=== PATIENT | female | born 1950 | race Caucasian/White ===

== ENCOUNTER → 2018-03-17 | Outpatient (CLI) | payer OTHER, MEDICARE | LOC: FIMAGING 09:24 | PROVIDERS: ATTEND Orthopaedic Surgery | DX: Z01.818 Encounter for other preprocedural examination (principal); M16.12 Unilateral primary osteoarthritis, left hip ==

== ENCOUNTER 2018-04-10 08:10 | Inpatient (IN) | payer OTHER, MEDICARE ==
--- NOTE | 2018-04-10 06:31 | PDHPUP ---
History & Physical Update H&P update statement: This history and physical update is based on an assessment of the patient which was completed after admission or registration (within 24 hours), but prior to the surgery/procedure. H&P update: no change in patient's condition since H&P completed
--- NOTE | 2018-04-10 06:31 | PDIAF ---
- Diagnosis Diagnosis: left hip djd Code Status: Full Code - Medication Management Discharge Medications: Medications to Continue on Transfer Calcium Carbonate [Oyster Shell Calcium 500 mg (*)] 500 mg PO DAILY 03/23/18 [ Last Taken Unknown] Carboxymethylcellulose 1% [Refresh Celluvisc (*)] 1 drop EACHEYE DAILY PRN 03/23 [Last Taken Unknown] Cholecalciferol Vit D3 [Vitamin D3 (*)] 1,000 units PO DAILY 03/23/18 [Last Taken Unknown] Fluticasone Nasal [Flonase Nasal [place] (RX)] 1 sprays NASAL DAILY 03/23/18 [ Last Taken Unknown] Ibuprofen [Motrin (*)] 400 - 800 mg PO DAILY 03/23/18 [Last Taken Unknown] Multivitamins [Multivitamin (*)] 1 each PO DAILY 03/23/18 [Last Taken Unknown] Discharge Medications: Refer to the Discharge Home Medication list for PRN reason. - Orders Services needed: Physical Therapy Isolation Type: None Diet Recommendation: no restrictions on diet Diet Texture: Regular Texture Diet Additional Instructions: TOTAL JOINT ARTHROPLASTY DISCHARGE INSTRUCTIONS 1. Your surgeon follows the [facility] protocol for reducing your risk of DVT (blood clots) following surgery. Medication will be ordered to prevent blood clots. A sudden increase in calf pain and/or swelling could indicate a blood clot in your leg. If this occurs, please call your surgeon or his/her financial planning assistant. An ultrasound of the leg may be necessary to diagnose a blood clot. If you have conditions that make you a higher risk for blood clots, your surgeon may use more aggressive ways to prevent them. Notify your surgeon if you think you are a high risk for blood clots. 2. Wear your white surgical stockings (KHLOE hose) for 2 weeks. This decreases your swelling and may help prevent blood clots. It is ok to remove KHLOE hose at night time to give your legs a break. 3. Swelling and bruising in the surgical leg is common. If you feel that it is excessive, please notify your surgeon. 4. Elevate your surgical leg with the ankle above the hip several times every day. Please keep the leg straight when you elevate by putting pillows under your foot. Do not put pillows under your knee. This will make being able to fully straighten more difficult. This is uncomfortable, but try to do it as much as possible. 5. For total knee replacements use compressive wrap on your knee for 3-5 days after surgery, then you can discontinue it. 6. Use a walker or crutches for 1-2 weeks. Progress your weight-bearing as tolerated. You may start to use a cane when you feel stable and safe. 7. You will receive physical therapy instructions in the hospital. Continue those exercises at home. There are additional exercises in the total joint booklet you were given before surgery. Outpatient physical therapy will begin 7- 10 days after surgery. Please schedule this in advance. 8. Use ice on your knee at least 3-5 times every day for 30 minutes. This helps reduce pain and swelling. Also use it at night before falling asleep. 9. Leave your surgical dressing in place for 2 weeks. Your dressing is water resistant, but not waterproof. Cover it with Saran Wrap or Pvgfk-t-Cnvb before showering. You may shower as soon as you feel safe entering a shower. If you notice bleeding from your incision 2 or 3 days after surgery, please notify your surgeon. 10. Due to narcotics, decreased activity and altered diet, most patients experience constipation after surgery. Use glid-byo-byzlvhv stool softeners while you are on narcotics. 11. You may drive a car when you are comfortable bearing weight, have good muscular control of your leg and are off narcotics. This usually occurs 2-4 weeks after surgery, depending on which leg was operated on. 12. If there are questions not addressed here, please refer the [facility] book given for more information. If you still have questions, please contact your surgeon s office. 13. If you have a life-threatening emergency, please call 911 and go to the emergency room immediately. For non-life threatening emergencies, please call your physicians office for advice before going to the emergency room. - Follow Up Care Current Providers and Referrals: Ana Lilia Bond [Primary Care Provider] - Felton Byrd MD [Medical Doctor] -
[2018-04-10] MEDS ORDERED: ACETAMINOPHEN 325 MG TAB PO ONE (08:32)
[2018-04-10] MEDS ORDERED: ceFAZolin 2 GM/DEXTROSE 100 ML IV ONE (08:32)
[2018-04-10] MEDS ORDERED: FAMOTIDINE 20 MG TAB PO ONE (08:32)
[2018-04-10] MEDS ORDERED: LIDOCAINE 1% 2 ML INJ ID PRN (08:32)
[2018-04-10] MEDS ORDERED: LR 1,000 ML IV ONE (08:32)
[2018-04-10] MEDS ORDERED: TRANEXAMIC ACID 1,000 MG in NS 100 ML IV ONE (09:00)
[2018-04-10] MEDS ORDERED: ROPIVACAINE 0.2% 80 MG, EPINEPHrine 0.2 MG, KETOROLAC TROMETHAMINE 30 MG, morphINE 10 M... IU ONE (09:00)
[2018-04-10] MEDS ORDERED: ceFAZolin 1 GM/5 ML SYR ONE (10:01)
--- NOTE | 2018-04-10 10:04 | PDANEPAE ---
ANE Past Medical History - Cardiovascular History Hx Hypertension: No Hx Arrhythmias: No Hx Chest Pain: No Hx Coronary Artery / Peripheral Vascular Disease: No Hx CHF / Valvular Disease: No Hx Palpitations: No - Pulmonary History Hx COPD: No Hx Asthma/Reactive Airway Disease: No Hx Recent Upper Respiratory Infection: No Hx Oxygen in Use at Home: No Hx Sleep Apnea: No Sleep Apnea Screening Result - Last Documented: Negative - Neurologic History Hx Cerebrovascular Accident: No Hx Seizures: No Hx Dementia: No - Endocrine History Hx Diabetes: No Endocrine History Comment: anneliese's- asymptomatic - Renal History Hx Renal Disorders: Yes Renal History Comment: hx of uti. bladder lift surgery 07/2016 - Liver History Hx Hepatic Disorders: No - Neurological & Psychiatric Hx Hx Neurological and Psychiatric Disorders: No - Cancer History Hx Cancer: Yes Cancer History Comment: recurrance of breast ca 11/2016 completed chemo and radiation. breast cancer with left mastectomy 1996 surgery only - Congenital Disorder History Hx Congenital Disorders: No - GI History Hx Gastrointestinal Disorders: Yes Gastrointestinal History Comment: constipation. hx of reflux - Other Health History Other Health History: wears glasses. - Chronic Pain History Chronic Pain: Yes (left hip/knee) - Surgical History Prior Surgeries: 11/2016 left lumpectomy. 07/2016 bladder lift surgery. right ORIF clavicle fx. left knee surgery broken tibial fx. hardware removed 06/2014. left mastectomy. 1988 ANE Review of Systems Review of Systems: - Exercise capacity METS (RN): 3 METS ANE Patient History - Allergies Allergies/Adverse Reactions: paclitaxel [From Taxol] Allergy (Verified 03/28/18 10:49) Hives - Home Medications Home Medications: Calcium Carbonate [Oyster Shell Calcium 500 mg (*)] 500 mg PO DAILY 03/23/18 [ Last Taken 04/06/18] Carboxymethylcellulose 1% [Refresh Celluvisc (*)] 1 drop EACHEYE DAILY PRN 03/23 [Last Taken 04/06/18] Cholecalciferol Vit D3 [Vitamin D3 (*)] 1,000 units PO DAILY 03/23/18 [Last Taken 04/06/18] Fluticasone Nasal [Flonase Nasal [place] (RX)] 1 sprays NASAL DAILY 03/23/18 [ Last Taken 04/09/18] Ibuprofen [Motrin (*)] 400 - 800 mg PO DAILY 03/23/18 [Last Taken 04/06/18] Multivitamins [Multivitamin (*)] 1 each PO DAILY 03/23/18 [Last Taken 04/06/18] Colace 04/10/18 [Last Taken 04/08/18] Senna Lax 04/10/18 [Last Taken 04/08/18] - NPO status NPO Since - Liquids (Date): 04/09/18 NPO Since - Liquids (Time): 20:00 NPO Since - Solids (Date): 04/09/18 NPO Since - Solids (Time): 19:00 - Smoking Hx Smoking Status: Never smoked - Family Anes Hx Family Hx Anesthesia Complications: none ANE Labs/Vital Signs - Vital Signs Blood Pressure: 99/68 Heart Rate: 66 Respiratory Rate: 15 O2 Sat (%): 98 Height: 155.8 cm Weight: 51 kg ANE Physical Exam - Airway Neck exam: decreased ROM Mallampati Score: Class 1 Mouth exam: normal dental/mouth exam - Pulmonary Pulmonary: no respiratory distress - Cardiovascular Cardiovascular: regular rate and rhythym - ASA Status ASA Status: II ANE Anesthesia Plan Anesthesia Plan: spinal
[2018-04-10] MEDS ORDERED: PROPOFOL 200 MG/20 ML VIAL ONE ×3 (11:06→11:51)
[2018-04-10] MEDS ORDERED: TEMAZEPAM 15 MG CAP PO PRN (12:31)
[2018-04-10] MEDS ORDERED: LACTULOSE 20 GM/30 ML UDCUP PO PRN (12:31)
[2018-04-10] MEDS ORDERED: CYCLOBENZAPRINE 10 MG TAB PO PRN (12:31)
[2018-04-10] MEDS ORDERED: PROMETHAZINE HCL 25 MG SUPPR PR PRN (12:31)
[2018-04-10] MEDS ORDERED: MAGNESIUM HYDROXIDE 30 ML UDCUP PO PRN (12:31)
[2018-04-10] MEDS ORDERED: METOCLOPRAMIDE 10 MG/2 ML VIAL IVP PRN (12:31)
[2018-04-10] MEDS ORDERED: oxyCODONE IR 5 MG TAB PO PRN (12:31)
[2018-04-10] MEDS ORDERED: ONDANSETRON 4 MG/2 ML VIAL IVP PRN ×2 (12:31→12:44)
[2018-04-10] MEDS ORDERED: BISACODYL 10 MG SUPP PR PRN (12:31)
[2018-04-10] MEDS ORDERED: POLYETHYLENE GLYCOL 3350 17 GM PKT PO PRN (12:31)
[2018-04-10] MEDS ORDERED: diphenhydrAMINE 25 MG CAP PO PRN (12:31)
[2018-04-10] MEDS ORDERED: DIPHENOXYLATE/ATROPINE LOMOTIL 1 TAB PO PRN (12:31)
[2018-04-10] MEDS ORDERED: CARBOXYMETHYLCELLULOSE 1% 0.4 ML DROPERETTE EACHEYE PRN (12:32)
--- NOTE | 2018-04-10 12:34 | POSTOPPROG ---
Post Op Note Date of Operation: 04/10/18 Surgeon: Felton Byrd Allergist/Immunologist: aren Anesthesiologist: boo Anesthesia: Spinal Pre-op Diagnosis: left hip djd Post-op Diagnosis: same Indication: same Procedure: left iliana Inf/Abcess present in the surg proc area at time of surgery?: No Depth: Deep Incisional (Fascial) EBL: 100-500 Drains: Hemovac
[2018-04-10] MEDS ORDERED: LR 500 ML IV PRN (12:44)
[2018-04-10] MEDS ORDERED: HYDROCODONE/APAP 5/325 TAB PO PRN (12:44)
[2018-04-10] MEDS ORDERED: NALOXONE HCL 0.4 MG/ML INJ IVP PRN (12:44)
--- NOTE | 2018-04-10 12:45 | POSTANESTH ---
Post Anesthetic Evaluation Cardiovascular Status: Normal, Stable Respiratory Status: Normal, Stable Level of Consciousness/Mental Status: Can Participate in Eval Pain Control: Adequate, Prn Tx Ordered Nausea/Vomiting Control: Adequate, Prn Tx Ordered Complications Possibly Related to Anesthesia: None Noted
[2018-04-10] MEDS ORDERED: fentaNYL 100 MCG/2 ML INJ ONE (12:46)
[2018-04-10] MEDS: fentaNYL 100 MCG/2 ML INJ IVP PRN ×2 (12:49→12:56)
[2018-04-10] MEDS: LR 1,000 ML IV SCH ×2 (14:49→22:51)
[2018-04-10] MEDS: ONDANSETRON DISINTEGRATING 4 MG TAB PO PRN (14:49)
--- NOTE | 2018-04-10 17:00 | PDMN ---
Medical Necessity Medical necessity: [facility] IP only surgery; cpt 77727 L FOREST
[2018-04-10] MEDS: ACETAMINOPHEN 325 MG TAB PO SCH (18:25)
[2018-04-10] MEDS: TRANEXAMIC ACID 650 MG TAB PO SCH (18:26)
[2018-04-10] MEDS: ceFAZolin 2 GM/DEXTROSE 100 ML IV SCH (18:26)
[2018-04-10] MEDS: PROMETHAZINE HCL 25 MG/ML INJ IVP PRN (20:24)
[2018-04-10] MEDS: FAMOTIDINE 20 MG TAB PO SCH (22:55)
[2018-04-10] MEDS: ASPIRIN 325 MG TAB PO SCH (22:55)
[2018-04-10] MEDS: SENNOSIDES/DOCUSATE SODIUM TAB PO SCH (22:56)
[2018-04-11] MEDS: TRANEXAMIC ACID 650 MG TAB PO SCH ×2 (01:31→10:02)
[2018-04-11] MEDS: ceFAZolin 2 GM/DEXTROSE 100 ML IV SCH (01:31)
[2018-04-11] MEDS: ACETAMINOPHEN 325 MG TAB PO SCH ×4 (01:32→18:11)
[2018-04-11] MEDS: ONDANSETRON DISINTEGRATING 4 MG TAB PO PRN (01:36)
[2018-04-11] MEDS: PROMETHAZINE HCL 25 MG/ML INJ IVP PRN (02:43)
--- NOTE | 2018-04-11 07:08 | PDIAF ---
- Diagnosis Diagnosis: left hip djd Code Status: Full Code - Medication Management Discharge Medications: Medications to Continue on Transfer Calcium Carbonate [Oyster Shell Calcium 500 mg (*)] 500 mg PO DAILY 03/23/18 [ Last Taken 04/06/18] Carboxymethylcellulose 1% [Refresh Celluvisc (*)] 1 drop EACHEYE DAILY PRN 03/23 [Last Taken 04/06/18] Cholecalciferol Vit D3 [Vitamin D3 (*)] 1,000 units PO DAILY 03/23/18 [Last Taken 04/06/18] Fluticasone Nasal [Flonase Nasal [place]] 1 sprays NASAL DAILY 03/23/18 [Last Taken 04/09/18] Multivitamins [Multivitamin (*)] 1 each PO DAILY 03/23/18 [Last Taken 04/06/18] Colace 04/10/18 [Last Taken 04/08/18] Senna Lax 04/10/18 [Last Taken 04/08/18] Aspirin [Aspirin 325 mg (*)] 325 mg PO DAILY tab 04/11/18 [Last Taken Unknown] oxyCODONE IR [Oxycodone Ir (*)] 5 - 10 mg PO Q3HRS PRN #50 tab 04/11/18 [Last Taken Unknown] Discharge Medications: Refer to the Discharge Home Medication list for PRN reason. - Orders Services needed: Physical Therapy, Occupational Therapy Isolation Type: None Diet Recommendation: no restrictions on diet Diet Texture: Regular Texture Diet Additional Instructions: TOTAL JOINT ARTHROPLASTY DISCHARGE INSTRUCTIONS 1. Your surgeon follows the [facility] protocol for reducing your risk of DVT (blood clots) following surgery. Medication will be ordered to prevent blood clots. A sudden increase in calf pain and/or swelling could indicate a blood clot in your leg. If this occurs, please call your surgeon or his/her assistant at surgery. An ultrasound of the leg may be necessary to diagnose a blood clot. If you have conditions that make you a higher risk for blood clots, your surgeon may use more aggressive ways to prevent them. Notify your surgeon if you think you are a high risk for blood clots. 2. Wear your white surgical stockings (KHLOE hose) for 2 weeks. This decreases your swelling and may help prevent blood clots. It is ok to remove KHLOE hose at night time to give your legs a break. 3. Swelling and bruising in the surgical leg is common. If you feel that it is excessive, please notify your surgeon. 4. Elevate your surgical leg with the ankle above the hip several times every day. Please keep the leg straight when you elevate by putting pillows under your foot. Do not put pillows under your knee. This will make being able to fully straighten more difficult. This is uncomfortable, but try to do it as much as possible. 5. For total knee replacements use compressive wrap on your knee for 3-5 days after surgery, then you can discontinue it. 6. Use a walker or crutches for 1-2 weeks. Progress your weight-bearing as tolerated. You may start to use a cane when you feel stable and safe. 7. You will receive physical therapy instructions in the hospital. Continue those exercises at home. There are additional exercises in the total joint booklet you were given before surgery. Outpatient physical therapy will begin 7- 10 days after surgery. Please schedule this in advance. 8. Use ice on your knee at least 3-5 times every day for 30 minutes. This helps reduce pain and swelling. Also use it at night before falling asleep. 9. Leave your surgical dressing in place for 2 weeks. Your dressing is water resistant, but not waterproof. Cover it with Saran Wrap or Pxttg-a-Oqxv before showering. You may shower as soon as you feel safe entering a shower. If you notice bleeding from your incision 2 or 3 days after surgery, please notify your surgeon. 10. Due to narcotics, decreased activity and altered diet, most patients experience constipation after surgery. Use aygy-ocd-spjfpll stool softeners while you are on narcotics. 11. You may drive a car when you are comfortable bearing weight, have good muscular control of your leg and are off narcotics. This usually occurs 2-4 weeks after surgery, depending on which leg was operated on. 12. If there are questions not addressed here, please refer the [facility] book given for more information. If you still have questions, please contact your surgeon s office. 13. If you have a life-threatening emergency, please call 911 and go to the emergency room immediately. For non-life threatening emergencies, please call your physicians office for advice before going to the emergency room. - Follow Up Care Current Providers and Referrals: Ana Lilia Bond [Primary Care Provider] - Felton Byrd MD [Medical Doctor] -
--- NOTE | 2018-04-11 07:10 | SOAPPROG ---
SOAP Progress Note Assessment/Plan: Assessment: s/p iliana Plan:limited mobility yesterday secondary to low bp and lightheadedness dvt precautions d/c home with home pt/ot 04/11/18 07:08 Subjective: lightheaded yesterday no current nausea, no cp or sob Objective: Vital Signs Temp Pulse Resp BP Pulse Ox 36.7 C 58 L 18 82/46 L 97 04/11/18 04:00 04/11/18 04:00 04/11/18 04:00 04/11/18 04:00 04/11/18 04:00 Laboratory Results 04/11/18 04:40 04/10/18 04/11/18 04/12/18 05:59 05:59 05:59 Intake Total 4331 Output Total 1035 400 Balance 3296 -400 dressing intact intact pf,df,ehl lyndon neg homans lyndon xrays stable anatomic alignment,, no fx or lucency ICD10 Worksheet Patient Problems: Problems Problem Status Onset Hip arthritis Acute - ICD10 Problem Qualifiers (1) Hip arthritis
[2018-04-11] MEDS: SENNOSIDES/DOCUSATE SODIUM TAB PO SCH ×2 (07:57→20:41)
[2018-04-11] MEDS: ASPIRIN 325 MG TAB PO SCH (07:57)
[2018-04-11] MEDS: FAMOTIDINE 20 MG TAB PO SCH ×2 (07:58→20:41)
[2018-04-11] MEDS: LR 1,000 ML IV SCH (09:59)
--- NOTE | 2018-04-11 11:07 | ASMTCMCOM ---
CM Note CM Note Notes: Pt medically stable for d/c with [facility] PT. Address/phone verified. Orders to be obtained via [employer]. Date Signed: 04/11/2018 11:06 AM Electronically Signed By:JASPAL Partida
--- NOTE | 2018-04-11 11:07 | ASMTLACE ---
LACE Length of stay for Answers: 2 days current admission Acuity / Level of Answers: Yes Care: Did the patient have an inpatient admission? Comorbidities - select Answers: Any tumor (including all that apply lymphoma or leukemia) Opioid dependence / Chronic pain # of Emergency department Answers: 0 visits in the last 6 months Score: 11 Date Signed: 04/11/2018 11:04 AM Electronically Signed By:JASPAL Partida
--- NOTE | 2018-04-11 13:56 | ASMTCMCOM ---
CM Note CM Note Notes: Pt will stay another night per PT Summer LANETTE claros. Date Signed: 04/11/2018 12:15 PM Electronically Signed By:JASPAL Partida
[2018-04-11] MEDS ORDERED: LR 1,000 ML IV SCH (17:00)
[2018-04-11] MEDS ORDERED: NS 500 ML IV ONE (20:23)
--- NOTE | 2018-04-11 20:44 | GCON ---
[f rep st] CONSULTATION HOSPITALIST CONSULTATION DATE OF CONSULTATION: 04/11/2018 REFERRING PHYSICIAN: Felton Byrd MD REASON FOR CONSULTATION: Postoperative hypotension. HISTORY OF PRESENT ILLNESS: This is a 67-year-old female, postoperative day one, left total hip arth roplasty due to degenerative joint disease. Postoperatively the patient's blood pressure has ranged from 116 systolic to 72 systolic with a diastolic of 37 to 68. The patient tells me that her blood p ressure typically runs low. Currently she denies any chest pain or shortness of breath. She does no t feel lightheaded. She denies any fevers or chills. PAST MEDICAL HISTORY: Breast cancer, finished treatment in December of this year. PAST SURGICAL HISTORY: 1. Lumpectomy. 2. section. 3. Clavicle ORIF. 4. Tibial plateau fracture repair. MEDICATIONS: Reviewed. Refer to [employer] for details. ALLERGIES: Paclitaxel. SOCIAL HISTORY: She denies any alcohol, tobacco, or illicit drug use. FAMILY HISTORY: Reviewed and noncontributory. REVIEW OF SYSTEMS: Comprehensive 10-point review of systems was done and is negative, except for as mentioned in the HPI. PHYSICAL EXAM: VITAL SIGNS: Blood pressure is currently 84/42, pulse of 72, respiratory rate 18, O2 saturation 91% on room air. Temperature afebrile. GENERAL: No acute distress. HEAD: Normocephal ic, atraumatic. EYES: PERRLA. Sclerae anicteric. MOUTH: Moist mucous membranes. NECK: Supple. No lymphadenopathy. CARDIOVASCULAR: S1, S2. No murmurs, rubs, clicks, gallops. No JVD. No lower extremity edema. PULMONARY: Lungs are clear. No wheezes, rales, or rhonchi. ABDOMEN: Soft, nont victoria, nondistended. No guarding or rebound tenderness. Normoactive bowel sounds. EXTREMITIES: No clubbing or cyanosis. NEURO: Cranial nerves 2 through 12 grossly intact. No focal motor or sensor y deficits. SKIN: Clear. No rashes. DIAGNOSTICS: Hemoglobin was 10, hematocrit was 29.8. Preop labs from 03/22/2018 were reviewed. Sod ium 135, potassium 4.3, chloride 103, BUN 21, creatinine 0.9, glucose 90. LFTs unremarkable. ASSESSMENT AND PLAN: 1. This is a 67-year-old female, postoperative day one of a left total hip arthroplasty, who I have been asked to see. 2. Postoperative hypotension (asymptomatic). PLAN: At this time, the patient appears to be mentati ng well, and is asymptomatic. Will check a baseline basic metabolic panel, as well as venous lactic acid. Will order a.m. cortisol, and consider cosyntropin stimulation test as indicated. She had bee n receiving IV lactated Ringer's all day, which will be discontinued. Will trial a 500 cc bolus of n ormal saline and repeat x1 as indicated to goal systolic blood pressure of greater than 100 systolic. 3. Mild anemia. PLAN: We will repeat a CBC in the morning. Thank you for allowing me to participate in the care of this patient. The hospitalist service will jefe ferguson to follow along with you. /[id number]/MODL
[2018-04-12] MEDS: ACETAMINOPHEN 325 MG TAB PO SCH ×3 (00:51→13:38)
[2018-04-12 05:47] LABS: PLATELET COUNT 161 10^3/uL (150-400)
--- NOTE | 2018-04-12 07:51 | SOAPPROG ---
SOAP Progress Note Assessment/Plan: Assessment: 2 days s/p L FOREST. Doing well, pain controlled. BP normalizing. Plan: d/c home today cont pain meds as ordered f/u in 14 days at [facility] ortho WBAT 04/12/18 07:49 Subjective: 2 days s/p L FOREST. states she is doing well with minimal pain. Denies f/c, n/v, calf pain, SOB, CP, numbness or tingling. Objective: Vital Signs Temp Pulse Resp BP Pulse Ox 36.9 C 73 15 94/50 L 95 04/12/18 03:54 04/12/18 03:54 04/12/18 03:54 04/12/18 03:54 04/12/18 03:54 Laboratory Results 04/12/18 04:35 04/12/18 04:35 04/11/18 04/12/18 04/13/18 05:59 05:59 05:59 Intake Total 4331 3650 Output Total 1035 4200 400 Balance 3296 -550 -400 Physical Exam - Physical Exam General Appearance: WD/WN, alert, no apparent distress Peripheral Pulses: 1+: dorsalis-pedis (R), dorsalis-pedis (L) Skin: normal color, warm/dry, No rash Extremities: normal inspection, normal capillary refill, swelling, No normal range of motion, No non-tender, No pedal edema, No calf tenderness, No Jeanette's sign Neuro/Psych: no motor/sensory deficits, alert, normal mood/affect, oriented x 3 ICD10 Worksheet Patient Problems: Problems Problem Status Onset Hip arthritis Acute
--- NOTE | 2018-04-12 07:52 | PDIAF ---
- Diagnosis Diagnosis: left hip djd Code Status: Full Code - Medication Management Discharge Medications: Medications to Continue on Transfer Calcium Carbonate [Oyster Shell Calcium 500 mg (*)] 500 mg PO DAILY 03/23/18 [ Last Taken 04/06/18] Carboxymethylcellulose 1% [Refresh Celluvisc (*)] 1 drop EACHEYE DAILY PRN 03/23 [Last Taken 04/06/18] Cholecalciferol Vit D3 [Vitamin D3 (*)] 1,000 units PO DAILY 03/23/18 [Last Taken 04/06/18] Fluticasone Nasal [Flonase Nasal [place]] 1 sprays NASAL DAILY 03/23/18 [Last Taken 04/09/18] Multivitamins [Multivitamin (*)] 1 each PO DAILY 03/23/18 [Last Taken 04/06/18] Docusate Sodium [Colace 100 MG (*)] 100 mg PO BID PRN #0 04/10/18 [Last Taken ] Sennosides/Docusate Sodium [Senna-S Tablet] 1 each PO DAILY PRN #0 04/10/18 [ Last Taken 04/08/18] Aspirin [Aspirin 325 mg (*)] 325 mg PO DAILY tab 04/11/18 [Last Taken Unknown] oxyCODONE IR [Oxycodone Ir (*)] 5 - 10 mg PO Q3HRS PRN #50 tab 04/11/18 [Last Taken Unknown] Discharge Medications: Refer to the Discharge Home Medication list for PRN reason. - Orders Services needed: Physical Therapy, Occupational Therapy Isolation Type: None Diet Recommendation: no restrictions on diet Diet Texture: Regular Texture Diet Activity/Weight Bearing Restrictions: WBAT Additional Instructions: TOTAL JOINT ARTHROPLASTY DISCHARGE INSTRUCTIONS 1. Your surgeon follows the [facility] protocol for reducing your risk of DVT (blood clots) following surgery. Medication will be ordered to prevent blood clots. A sudden increase in calf pain and/or swelling could indicate a blood clot in your leg. If this occurs, please call your surgeon or his/her therapist's assistant. An ultrasound of the leg may be necessary to diagnose a blood clot. If you have conditions that make you a higher risk for blood clots, your surgeon may use more aggressive ways to prevent them. Notify your surgeon if you think you are a high risk for blood clots. 2. Wear your white surgical stockings (KHLOE hose) for 2 weeks. This decreases your swelling and may help prevent blood clots. It is ok to remove KHLOE hose at night time to give your legs a break. 3. Swelling and bruising in the surgical leg is common. If you feel that it is excessive, please notify your surgeon. 4. Elevate your surgical leg with the ankle above the hip several times every day. Please keep the leg straight when you elevate by putting pillows under your foot. Do not put pillows under your knee. This will make being able to fully straighten more difficult. This is uncomfortable, but try to do it as much as possible. 5. For total knee replacements use compressive wrap on your knee for 3-5 days after surgery, then you can discontinue it. 6. Use a walker or crutches for 1-2 weeks. Progress your weight-bearing as tolerated. You may start to use a cane when you feel stable and safe. 7. You will receive physical therapy instructions in the hospital. Continue those exercises at home. There are additional exercises in the total joint booklet you were given before surgery. Outpatient physical therapy will begin 7- 10 days after surgery. Please schedule this in advance. 8. Use ice on your knee at least 3-5 times every day for 30 minutes. This helps reduce pain and swelling. Also use it at night before falling asleep. 9. Leave your surgical dressing in place for 2 weeks. Your dressing is water resistant, but not waterproof. Cover it with Saran Wrap or Uhygt-t-Sdvj before showering. You may shower as soon as you feel safe entering a shower. If you notice bleeding from your incision 2 or 3 days after surgery, please notify your surgeon. 10. Due to narcotics, decreased activity and altered diet, most patients experience constipation after surgery. Use bdgl-pnw-lbgqztw stool softeners while you are on narcotics. 11. You may drive a car when you are comfortable bearing weight, have good muscular control of your leg and are off narcotics. This usually occurs 2-4 weeks after surgery, depending on which leg was operated on. 12. If there are questions not addressed here, please refer the [facility] book given for more information. If you still have questions, please contact your surgeon s office. 13. If you have a life-threatening emergency, please call 911 and go to the emergency room immediately. For non-life threatening emergencies, please call your physicians office for advice before going to the emergency room. - Follow Up Care Current Providers and Referrals: Ana Lilia Bond [Primary Care Provider] - Felton Byrd MD [Medical Doctor] -
[2018-04-12] MEDS: ASPIRIN 325 MG TAB PO SCH (10:50)
[2018-04-12] MEDS: SENNOSIDES/DOCUSATE SODIUM TAB PO SCH (10:51)
[2018-04-12] MEDS: FAMOTIDINE 20 MG TAB PO SCH (10:51)
[2018-04-12 11:14] VITALS: BP 98/58
--- NOTE | 2018-04-12 11:14 | ASMTCMCOM ---
CM Note CM Note Notes: Pt medically stable for d/c with [facility]. Amna at [facility] notified pt will d/c today. Date Signed: 04/12/2018 11:14 AM Electronically Signed By:JASPAL Partida
--- NOTE | 2018-04-13 16:01 | ASDISCHSUM ---
Discharge Information Plan Status:Home with Home Health Medically Cleared to Leave: Discharge Date:04/12/2018 02:04 PM D/C Disposition:Home Health Service ADT D/C Disposition:Home, Routine, Self-Care Projected Discharge Date:04/11/2018 11:00 AM Transportation at D/C: Discharge Delay Reason: Follow-Up Date:04/11/2018 11:00 AM Discharge Slot: Final Diagnosis: Placement Information Referral Type:*Home Health Care Services Referral ID:[id number] Provider Name:[facility] Address 1:[address] [place] [address] Address 2: City:[place] Selection Factors: State:[place] Patient Contact Information Contact Name:ROSALIE Relationship:Daughter Address: City: [facility] Phone: [facility] Code: Email: Financial Information Financial Class:Medicare Primary Plan Desc:MEDICARE INPATIENT Primary Plan Number:[id number] Secondary Plan Desc:[employer]/MDR SUPPLEMENT Secondary Plan Number:[id number] Assessment Information CM Corporate Recruiter Assessment CM Note CM Note Notes: Yee contacted case management regarding her upcoming hip surgery with Dr. Byrd: Yee stated she lives alone and is expecting to spend one night in the hospital post-surgery. She has a friend staying with her the following night to assist her homecoming. Yee has spoken with Dr. Byrd about home care PT services and is interested in [facility], if available. Date Signed: 03/17/2018 10:31 AM Electronically Signed By:Sulma Amador LACE LACE Length of stay for Answers: 2 days current admission Acuity / Level of Answers: Yes Care: Did the patient have an inpatient admission? Comorbidities - select Answers: Any tumor (including all that apply lymphoma or leukemia) Opioid dependence / Chronic pain # of Emergency department Answers: 0 visits in the last 6 months Score: 11 Date Signed: 04/11/2018 11:04 AM Electronically Signed By:JASPAL Partida [facility] CM Progress Note CM Note CM Note Notes: Pt medically stable for d/c with [facility] PT. Address/phone verified. Orders to be obtained via [employer]. Date Signed: 04/11/2018 11:06 AM Electronically Signed By:JASPAL Partida [facility] CM Progress Note CM Note CM Note Notes: Pt will stay another night per PT Summer [facility] Kendal claros. Date Signed: 04/11/2018 12:15 PM Electronically Signed By:JASPAL Partida [facility] CM Progress Note CM Note CM Note Notes: Pt medically stable for d/c with [facility]. Amna at [facility] notified pt will d/c today. Date Signed: 04/12/2018 11:14 AM Electronically Signed By:JASPAL Partida Intervention Information
--- NOTE | 2018-04-27 07:35 | GDS ---
[f rep st] DISCHARGE SUMMARY ADMISSION DIAGNOSIS: Left hip degenerative joint disease. DISCHARGE DIAGNOSIS: Left hip degenerative joint disease. PROCEDURE: Left total hip arthroplasty, anterior/CHONG plasty. 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 Clinical and radiographic features are consistent with this. She has failed all attempts a t conservative management. She presents for elective total hip replacement. HOSPITAL COURSE: The patient was admitted to the hospital floor after uncomplicated total hip arthro plasty. She tolerated the procedure well. She quickly progressed with physical therapy. At the eric e of discharge, she was tolerating an oral diet. Pain is well controlled on oral medicines. She is voiding and stooling without difficulty. Dressings are clean, dry, and intact. She has negative Iraj an's bilaterally. X-rays are stable with anatomic alignment. No fracture or lucency. DISCHARGE ACTIVITIES: Weightbearing as tolerated. Anterior hip precautions. Daily dressing changes . May shower without the bandage. FOLLOWUP: Followup in 2 weeks. Seek attention for increasing redness, swelling, drainage, discharge , or other focal complaint. DISCHARGE MEDICATIONS: 1. Aspirin 325 mg p.o. daily for 6 weeks. 2. Oxycodone 5 mg 1-2 every 6 hours p.r.n. pain. /[id number]/MODL
--- NOTE | 2018-04-27 07:40 | GOP ---
[f rep st] OPERATIVE REPORT DATE OF OPERATION: 04/10/2018 SURGEON: Felton Byrd MD INFECTIOUS DISEASE PHYSICIAN: Bandar Albrecht, surgical forceps fabricator, who was a medical necessity for the entirety of the case. PREOPERATIVE DIAGNOSIS: Left hip degenerative joint disease. POSTOPERATIVE DIAGNOSIS: Left hip degenerative joint disease. PROCEDURE PERFORMED: Left total hip arthroplasty, anterior, MAKOplasty. FINDINGS: SPECIMENS: To Pathology, the femoral head. INDICATIONS: The patient is a healthy woman with end-stage arthritis across her left hip. Clinical and radiographic features are consistent with this. She has failed all attempts at conservative fatoumata gement. She presents for an elective total hip replacement. DESCRIPTION OF PROCEDURE: The patient was identified in the preanesthesia area. The left hip was cl early demarcated as the operative site with an indelible marker. She was given 2 g of Ancef intraven ously en route to the operative suite. In the OR, a spinal anesthetic was placed, followed by genera l sedation. The pelvis and both lower extremities were sterilely prepped and draped in the usual fas hion. Appropriate time-out procedure was carried out. Attention was first turned to the right hip a nd hemipelvis. A 2 cm incision was made. Three pins were then placed into the iliac crest and the p elvic reference array affixed. Attention was then turned to the left hip. An anterior approach was made. Thick subcutaneous flaps were elevated, followed by opening of the tensor fascia fabian. The te nsor fibers were then retracted laterally. The underlying vascular structures were identified, ligat ed, cauterized, and transected. Retractors were then placed in an extracapsular position. T capsulo alin was made. The retractors were then placed in an intracapsular position. An acetabular checkpoi nt was placed. The bony wedge was withdrawn from the femoral neck, and the remaining head was withdr awn and sent to Pathology. The soft tissue remnants in the acetabulum were sharply excised. The bon y landmarks were entered into the computer in the standard fashion. Using the MAKOplasty robot, a 50 mm reamer was placed at an opening angle of 40 degrees and anteversion of 20 degrees, followed by a 50 mm acetabular Cluster Shell. This was confirmed to be fully seated, and a 0-degree X3 liner was t hen placed and confirmed to be fully seated. Attention was then turned to the femur, which was deliv ered through the use of soft tissue retractors and extension of the table. The proximal canal was op ened. Serial broaching was carried out to a size 5 stem. Trial reduction was carried out, with a 32 mm +0 mm neck length ultimately selected. This allowed judaism of leg lengths, full flexion and extension, and extension with 90 degrees of external rotation without subluxation. The trial stem w as withdrawn. A size 5 stem was then impacted and confirmed to be fully seated. The hip was then co piously irrigated and reduced. Appropriate leg-length judaism was achieved. The stability profi le was as previous. A 10-Stateless drain was then placed, followed by injection of the soft tissue with a joint cocktail of ropivacaine, morphine, Toradol, and epinephrine. The incision was closed in lay ers using 0-Vicryl, 2-0 Monocryl, and a ZipFix at the skin. Sterile dressings were applied. The pat ient was awakened, extubated, and taken to the recovery room in good and stable condition. TOTAL TOURNIQUET TIME: None. COMPLICATIONS: None. IMPLANTS: Roggen acetabular shell size 50, Trident X3 0-degree polyethylene insert, 32 mm inner chaitanya meter, BIOLOX ceramic head, 32 mm +0 mm neck length, and Accolade II 127 degree neck angle stem size 5. DISPOSITION: To the recovery room and then the floor. She is weightbearing and range of motion as t olerated with anterior hip precautions. /[id number]/MODL
== END 2018-04-12 14:04 | disposition home health service (06) | DRG 470 ==
LOC: F3N 08:10
PROVIDERS: ADMIT Orthopaedic Surgery; ATTEND Orthopaedic Surgery
PROC: 0SRB04Z Replacement of Left Hip Joint with Ceramic on Polyethylene Synthetic Substitute, Open Approach (ICD-10-PCS; principal; 2018-04-10 10:45)
DX: M16.12 Unilateral primary osteoarthritis, left hip (principal); I95.81 Postprocedural hypotension; Z85.3 Personal history of malignant neoplasm of breast; Z90.12 Acquired absence of left breast and nipple
CPT/HCPCS: 97110-GP; 97116-GP; 97161-GP; 97165-GO; 97530-GO; 97535-GO; G8978-GP-CK; G8979-GP-CI; G8980-GP-CI; G8987-GO-CI; G8987-GO-CJ; G8988-GO-CI; G8989-GO-CI; J0171; J0690; J1885; J2270; J2405; J2550; J2704; J2795; J3010

== ENCOUNTER → 2018-05-24 | Outpatient (CLI) | payer OTHER, MEDICARE | LOC: BMCIMAGING 10:05 | PROVIDERS: ATTEND Orthopaedic Surgery | DX: Z47.1 Aftercare following joint replacement surgery (principal); Z96.642 Presence of left artificial hip joint ==

== ENCOUNTER → 2018-07-05 | Outpatient (CLI) | payer OTHER, MEDICARE | LOC: BMCIMAGING 08:53 | PROVIDERS: ATTEND Orthopaedic Surgery | DX: Z09 Encounter for follow-up examination after completed treatment for conditions other than malignant neoplasm (principal); Z96.642 Presence of left artificial hip joint ==

== ENCOUNTER → 2018-10-11 | Outpatient (CLI) | payer OTHER, MEDICARE | LOC: BMCIMAGING 08:18 | PROVIDERS: ATTEND Orthopaedic Surgery | DX: Z47.1 Aftercare following joint replacement surgery (principal); Z96.642 Presence of left artificial hip joint ==